=== PATIENT | female | born 1965 | race Caucasian/White ===

== ENCOUNTER 2019-03-23 09:22 | Outpatient (CLI) | payer OTHER, MEDICAID | END 2019-03-23 09:23 | disposition home or self-care (01) | LOC: DTY/OP 09:22 | PROVIDERS: ATTEND Surgery | DX: E66.01 Morbid (severe) obesity due to excess calories (principal) | CPT/HCPCS: 97802 ==

== ENCOUNTER 2019-05-19 11:15 | Inpatient (IN) | payer MEDICARE, MEDICAID ==
[2019-05-19 12:05] VITALS: BMI 56.6
[2019-05-27] MEDS ORDERED: Heparin 5,000 UNITS/ML VIAL ONE (08:07)
[2019-05-27] MEDS ORDERED: HYDROmorphone 0.5 MG/0.5 ML SYRINGE ONE (08:32)
[2019-05-27] MEDS ORDERED: Fentanyl 100 MCG/2 ML VIAL ONE ×2 (08:32→10:38)
[2019-05-27] MEDS ORDERED: Bupivacaine 0.25% HCL 30 ML VIAL ONE (08:36)
[2019-05-27] MEDS ORDERED: Lidocaine 1% w/Epinephrine 1:100K 20 ML VIAL ONE (08:36)
[2019-05-27] MEDS ORDERED: SUGAMMADEX SODIUM 500 MG/5 ML VIAL ONE (09:45)
[2019-05-27] MEDS ORDERED: Promethazine HCl 25 MG/ML VIAL SLOW IVP PRN ×2 (09:52→10:19)
[2019-05-27] MEDS ORDERED: Ondansetron HCl/PF 4 MG/2 ML Vial IVP PRN ×2 (09:52→10:19)
[2019-05-27] MEDS ORDERED: HYDROmorphone 2 MG/ML VIAL SLOW IVP PRN (09:52)
[2019-05-27] MEDS ORDERED: Meperidine HCl/PF 25 MG/ML VIAL SLOW IVP PRN (09:52)
[2019-05-27] MEDS ORDERED: Ondansetron PF 4 MG/2 ML Vial ONE (09:56)
[2019-05-27] MEDS ORDERED: Rocuronium Bromide 10 MG/ML (10ML VIAL) ONE (09:56)
[2019-05-27] MEDS ORDERED: PROPOFOL 200 MG/20 ML VIAL ONE (09:56)
[2019-05-27] MEDS ORDERED: PHENYLEPHRINE-NS 100 MCG/ML 10 ML SYRINGE ONE (09:56)
[2019-05-27] MEDS ORDERED: hydrALAZINE 20 MG/ML VIAL SLOW IVP PRN (09:56)
[2019-05-27] MEDS ORDERED: Succinylcholine Chloride 20 MG/ML 10 ml SYRINGE FS ONE (09:56)
[2019-05-27] MEDS ORDERED: Promethazine HCl 25 MG/ML VIAL IM PRN ×3 (09:56→10:20)
[2019-05-27] MEDS ORDERED: Dextrose 5% in Water 1,000 ML IV PRN (09:56)
[2019-05-27] MEDS ORDERED: Dexamethasone 20 MG/5 ML VIAL ONE (09:56)
[2019-05-27] MEDS ORDERED: Ketorolac Tromethamine 30 MG/ML VIAL ONE (09:56)
[2019-05-27] MEDS ORDERED: Dextrose 50% Abboject 50 ML SYRINGE SLOW IVP PRN (09:56)
[2019-05-27] MEDS ORDERED: Hydrocodone-Acetamin 15 ML UDCUP PO PRN (09:56)
[2019-05-27] MEDS ORDERED: Lidocaine 1% PF 5 ML VIAL ONE (09:56)
[2019-05-27] MEDS ORDERED: diphenhydrAMINE 50 MG/ML VIAL IVP PRN ×2 (09:56→10:20)
[2019-05-27] MEDS ORDERED: Ondansetron PF 4 MG/2 ML Vial IVP PRN ×2 (09:56→10:20)
[2019-05-27] MEDS ORDERED: Zolpidem Tartrate 5 MG TAB PO PRN (10:20)
[2019-05-27] MEDS ORDERED: diphenhydrAMINE 25 MG CAP PO PRN (10:20)
[2019-05-27] MEDS ORDERED: Naloxone HCl 0.4 mg/ml Vial IV PRN (10:20)
[2019-05-27] MEDS ORDERED: diphenhydrAMINE 50 MG/ML VIAL IM PRN (10:20)
[2019-05-27] MEDS ORDERED: fentaNYL Citrate/PF 2,000 MCG in Sodium Chloride 0.9% 60 ML IV PRN (10:20)
[2019-05-27] MEDS ORDERED: Sodium Chloride 0.9% (PF) 10 ML VIAL FS PRN (10:30)
[2019-05-27] MEDS ORDERED: Communication Order-Pharmacy FS SCH (11:00)
[2019-05-27] MEDS: Ketorolac Tromethamine 30 MG/ML VIAL IVP SCH ×3 (12:00→23:19)
--- NOTE | 2019-05-27 12:01 | OP ---
DATE OF PROCEDURE: 05/27/2019 PREOPERATIVE DIAGNOSIS: Morbid obesity. PROCEDURES PERFORMED: Laparoscopic sleeve gastrectomy, intraoperative esophagogastroscopy. INDICATIONS: This is a 53-year-old female, morbidly obese, who has attempted multiple weight loss programs without success. FINDINGS: A 38-Georgian bougie used. DESCRIPTION OF PROCEDURE: After informed consent was obtained, the patient was taken to the operating room and given general endotracheal anesthesia. She was placed in the supine position. Abdomen was prepped and draped in usual fashion. Local anesthesia was infiltrated subcutaneously and deep and a 12-mm incision was performed approximately 8 inches above the xiphoid slightly to the left. Veress needle was inserted. Drop test was performed. Pneumoperitoneum was created to a volume of 2 L of carbon dioxide. Utilizing a bladeless 12-mm trocar and 0-degree laparoscope, direct visual entry into the abdominal cavity was performed. Pneumoperitoneum was created to a pressure of 15 mmHg and the patient was placed in steep reverse Trendelenburg position. Tamera liver retractor was inserted. Left lobe of the liver retracted superiorly. The pylorus was identified. A 12-mm port placed on the right beneath it and two 12s placed on left subcostal. The omentum was taken off the greater curvature 5 cm from the pylorus utilizing the LigaSure. Short gastrics divided with LigaSure. Left crura defined with LigaSure. A 38-[place]ian bougie inserted, directed into the antrum. The linear 60 mm green load stapler used to divide the antrum to the bougie, gold load along the bougie, and a series of blues through the angle of His. Intraoperative endoscopy was performed. The video endoscope was inserted under direct vision and advanced into the sleeve. Staple line was inspected. There was no bleeding. Staple line then tested by inflating the new stomach with pressurized air and water. There was no air leak. Stomach was decompressed. Scope was removed. The remnant stomach removed from the abdomen through the left lateral port site. The fascia was closed with 0 Vicryl suture and the GraNee needle. Trocars and retractors were removed. The skin was closed with interrupted 4-0 Rapide. Dermabond applied. The patient tolerated the procedure well, transferred to Recovery in good condition. Sponge and needle count verified correct x2. Job ID: [id number]
[2019-05-27] MEDS ORDERED: hydrALAZINE 20 MG/ML VIAL ONE (12:13)
[2019-05-27] MEDS: D5 1/2 NS w/20 mEq KCL 1,000 ML IV SCH ×3 (13:07→23:20)
[2019-05-27] MEDS: CEFAZOLIN 2 GM in Premix Bag 1 BAG IVPB SCH ×2 (17:04→23:19)
[2019-05-28] MEDS: Ketorolac Tromethamine 30 MG/ML VIAL IVP SCH (05:27)
[2019-05-28 05:32] LABS: #Lymphocytes 1.8 thou/uL (1.20-3.40); #Monocytes 0.6 thou/uL (0.11-0.59); #Neutrophils 5.1 thou/uL (1.40-6.50); %Basophils 0.3 % (0.0-1.0); %Eosinophils 0.4 % (0.0-10.0); %Lymphocytes 23.7 % (21.0-51.0); %Monocytes 8.4 % (0.0-10.0); %Neutrophils 67.2 % (42.0-75.0); Hemoglobin 12.6 g/dL (12.0-16.0); Mean Corpuscular HGB CONC 34.1 g/dL (32.0-36.0); Mean Corpuscular Hemoglobin 31.1 pg (27.0-31.0); Mean Corpuscular Volume 91.1 fL (78.0-98.0); Mean Platelet Volume 8.4 fL (7.4-10.4); Platelet Count 200 thou/uL (130-400); Red Blood Cell (RBC) Count 4.05 mill/uL (4.20-5.40); White Blood Cell (WBC) Count 7.5 thou/uL (4.8-10.8)
[2019-05-28 05:53] LABS: Anion Gap 10 mmol/L (10-20); BUN (Urea Nitrogen) 14 mg/dL (9.8-20.1); Calc. Creatinine Clearance 152 mL/min (70-130); Calcium 8.3 mg/dL (7.8-10.44); Carbon Dioxide 27 mmol/L (22-29); Chloride 106 mmol/L (98-107); Estimated GFR-MDRD 54; Glucose 150 mg/dL (70-105); Potassium 3.5 mmol/L (3.5-5.1); Sodium 139 mmol/L (136-145)
[2019-05-28] MEDS ORDERED: Enoxaparin Sodium 40 MG/0.4 ML SYRINGE SC SCH (06:00)
[2019-05-28] MEDS ORDERED: FLU VACC QS2019-20(6MOS UP)/PF 60 MCG/0.5 ML SYRINGE IM ONE (09:00)
[2019-05-28] MEDS ORDERED: Pantoprazole 40 MG VIAL IVP SCH (09:00)
--- NOTE | 2019-05-28 09:26 | RAD ---
15 cc Gastrografin swallow: 05/28/2019 COMPARISON: None HISTORY: Recent gastric sleeve procedure FINDINGS: The patient ingested 15 cc of Gastrografin. Contrast media fills the distal esophagus and t raverses the gastroesophageal junction without delay. Contrast media enters the postoperative stomach with no evidence for leak or obstruction. Contrast media then exits the postoperative stomach and enters the proximal duodenum. Exposure data: 0.5 minutes of fluoroscopic time, 13.997 mGy/sq cm. IMPRESSION: No evidence for leak or obstruction following gastric sleeve procedure.
[2019-05-28 12:49] VITALS: BP 143/85; TEMP 97.4
[2019-05-28] MEDS ORDERED: GASTROGRAFIN 30 ML BOT ONE (14:44)
--- NOTE | 2019-05-28 15:02 | DIS ---
DATE OF ADMISSION: 05/27/2019 DATE OF DISCHARGE: 05/28/2019 DISCHARGE DIAGNOSIS: Morbid obesity. PROCEDURES DURING ADMISSION: Laparoscopic sleeve gastrectomy, intraoperative esophagogastroscopy, postoperative Gastrografin swallow. HOSPITAL COURSE: The patient was admitted, taken to the operating room, where she underwent sleeve gastrectomy. Postoperatively, she has done well. She is tolerating liquids well. Her x-ray was fine. She is discharged home on hydrocodone and Zofran. She will follow up with me in 2 weeks. Job ID: [id number]
[2019-05-29] MEDS ORDERED: Enoxaparin Sodium 40 MG/0.4 ML SYRINGE SC SCH (09:00)
== END 2019-05-28 12:25 | disposition home or self-care (01) | DRG 621 ==
LOC: SURG A 05-27 07:05
PROVIDERS: ADMIT Surgery; ATTEND Surgery
PROC: 0DB64Z3 Excision of Stomach, Percutaneous Endoscopic Approach, Vertical (ICD-10-PCS; principal; 2019-05-27)
PROC: 0DJ08ZZ Inspection of Upper Intestinal Tract, Via Natural or Artificial Opening Endoscopic (ICD-10-PCS; 2019-05-27)
DX: E66.01 Morbid (severe) obesity due to excess calories (principal); Z68.43 Body mass index [BMI] 50.0-59.9, adult; I10 Essential (primary) hypertension; E78.5 Hyperlipidemia, unspecified; I49.5 Sick sinus syndrome; Z79.899 Other long term (current) drug therapy
CPT/HCPCS: 36415; 74240; 80048; 85025; 88307; 88312; C9113; J0360; J0690; J1100; J1170; J1644; J1650; J1885; J2001; J2405; J2704; J3010; Q9963; S0020

== ENCOUNTER 2019-05-19 11:51 | Outpatient (CLI) | payer MEDICARE, MEDICAID ==
[2019-05-19 13:03] LABS: #Basophils 0.1 thou/uL (0.0-0.2); #Eosinphils 0.4 thou/uL (0.0-0.7); #Lymphocytes 2.1 thou/uL (1.20-3.40); #Monocytes 0.5 thou/uL (0.11-0.59); #Neutrophils 2.8 thou/uL (1.40-6.50); %Basophils 1.4 % (0.0-1.0); %Eosinophils 6.2 % (0.0-10.0); %Lymphocytes 36.1 % (21.0-51.0); %Monocytes 8.4 % (0.0-10.0); Hemoglobin 14.9 g/dL (12.0-16.0); Mean Corpuscular HGB CONC 34.9 g/dL (32.0-36.0); Mean Corpuscular Hemoglobin 31.7 pg (27.0-31.0); Mean Corpuscular Volume 90.8 fL (78.0-98.0); Mean Platelet Volume 8.2 fL (7.4-10.4); Platelet Count 217 thou/uL (130-400); White Blood Cell (WBC) Count 5.9 thou/uL (4.8-10.8)
[2019-05-19 13:17] LABS: Hemoglobin A1c 6.2 % (4.0-6.0)
--- NOTE | 2019-05-19 13:30 | RAD ---
2 VIEW CHEST: Date: 05/19/2019 HISTORY: Preop. FINDINGS: Lung diaz are clear of infiltrate. Heart size upper normal. Pacemaker leads appear adequately posit ioned. Osseous structures unremarkable with degenerative spine changes. IMPRESSION: No acute process. POS: ALBINH
[2019-05-19 13:37] LABS: ALT (SGPT) 62 U/L (8-55); AST (SGOT) 40 U/L (5-34); Albumin 4.3 g/dL (3.5-5.0); Alkaline Phosphatase 106 U/L (40-110); Anion Gap 13 mmol/L (10-20); BUN (Urea Nitrogen) 16 mg/dL (9.8-20.1); Bilirubin, Total 0.4 mg/dL (0.2-1.2); Calc. Creatinine Clearance 0 mL/min (70-130); Calcium 9.7 mg/dL (7.8-10.44); Carbon Dioxide 25 mmol/L (22-29); Chloride 106 mmol/L (98-107); Estimated GFR-MDRD 45; Globulin 3.6 g/dL (2.4-3.5); Glucose 158 mg/dL (70-105); Potassium 3.7 mmol/L (3.5-5.1); Protein, Total 7.9 g/dL (6.0-8.3); Sodium 140 mmol/L (136-145)
--- NOTE | 2019-05-19 17:06 | EKG ---
Test Reason : Blood Pressure : / mmHG Vent. Rate : 086 BPM Atrial Rate : 086 BPM P-R Int : 166 ms QRS Dur : 086 ms QT Int : 372 ms P-R-T Axes : 062 -11 051 degrees QTc Int : 445 ms Normal sinus rhythm Normal ECG No previous ECGs available Confirmed by DR. Bernie WYNNE ([id number]) on 05/19/2019 5:06:08 PM Referred By: RYAN Confirmed By:DR. Bernie WYNNE
== END 2019-05-19 11:52 | disposition home or self-care (01) ==
LOC: LABBT 11:51
PROVIDERS: ATTEND Surgery
DX: Z01.818 Encounter for other preprocedural examination (principal); E66.01 Morbid (severe) obesity due to excess calories
CPT/HCPCS: 71046; 80053; 83036; 85025; 93005; 93010